=== PATIENT | female | born 1995 | race Caucasian/White ===

== ENCOUNTER 2022-12-21 03:13 | Emergency (ER) | payer OTHER ==
[2022-12-21 04:07] LABS: Absolute Lymphocytes (CBC) 1.8 K/uL (0.7-4.9); Hematocrit 35.9 % (36.0-45.0); Lymphocytes % 21.8 % (15.3-44.8); MCV 84.3 fL (80-100); MPV 7.8 fL (7.6-11.3); RBC Red Blood Cell Count 4.26 M/uL (3.86-4.86)
[2022-12-21 04:36] LABS: Potassium 3.3 mEq/L (3.5-5.1)
--- NOTE | 2022-12-21 05:34 | ER ---
Nurse's Notes [facility] Name: Michelle Reich Age: 26 yrs Sex: Female : 1995 Arrival Date: 12/21/2022 Time: 03:13 Bed 6 Private MD: Diagnosis: Threatened Presentation: 12/21 03:25 Chief complaint: Patient states: This is my first , i am 13 weeks along and kd3 around 1140 last night I started to bleed. I am not having any cramping and i called my production line nurse and she said to put a pad on and just monitor it but around 0230, i noticed some clots so i came to get checked out. Coronavirus screen: Vaccine status: Patient reports being unvaccinated. Ebola Screen: No symptoms or risks identified at this time. Initial Sepsis Screen: Does the patient meet any 2 criteria? No. Patient's initial sepsis screen is negative. Does the patient have a suspected source of infection? No. Patient's initial sepsis screen is negative. Risk Assessment: Do you want to hurt yourself or someone else? Patient reports no desire to harm self or others. Onset of symptoms was December 21, 2022. 03:25 Method Of Arrival: Ambulatory kd3 03:25 Acuity: CHANDRIKA 3 kd3 Triage Assessment: 03:27 General: Appears in no apparent distress. Behavior is anxious, crying. Pain: Complains kd3 of pain in stomach ache from nerves. : Reports vaginal bleeding that is bright red, with clots. Historical: - Allergies: 03:27 No Known Allergies; kd3 - Home Meds: 03:27 None [Active]; kd3 - Immunization history:: Adult Immunizations up to date. - Social history:: Smoking status: Patient denies any tobacco usage or history of. Screenin:40 [facility] ED Fall Risk Assessment (Adult) History of falling in the last 3 months, ll3 including since admission No falls in past 3 months (0 pts) Confusion or Disorientation No (0 pts) Intoxicated or Sedated No (0 pts) Impaired Gait No (0 pts) Mobility Assist Device Used No (0 pt) Altered Elimination No (0 pt) Score/Fall Risk Level 0 - 2 = Low Risk Oriented to surroundings, Maintained a safe environment, Educated pt \T\ family on fall prevention, incl call for assistance when getting out of bed. Abuse screen: Denies threats or abuse. Denies injuries from another. Nutritional screening: No deficits noted. Tuberculosis screening: No symptoms or risk factors identified. Assessment: 03:40 General: Appears comfortable, Behavior is calm, cooperative. Pain: Complains of pain in ll3 right lower quadrant Pain does not radiate. Quality of pain is described as crampy, Pain began 2300. : Urine is blood tinged, Reports vaginal bleeding that is bright red, with clots. Derm: Skin is pink, warm \T\ dry. Vital Signs: 03:25 BP 122 / 84; Pulse 78; Resp 16; Temp 98.4(O); Pulse Ox 100% on R/A; Weight 69.4 kg; kd3 Height 5 ft. 4 in. ; 04:06 BP 108 / 67; Pulse 69; Resp 18 S; Pulse Ox 100% on R/A; ha1 06:15 BP 102 / 69; Pulse 74; Resp 16; Pulse Ox 99% on R/A; ll3 03:25 Body Mass Index 26.26 (69.40 kg, 162.56 cm) kd3 ED Course: 03:15 Patient arrived in ED. [id number] 03:17 Wilder Teran MD is Attending Physician. bs3 03:27 Triage completed. kd3 03:27 Arm band placed on right wrist. kd3 03:39 Initial lab(s) drawn, by me, sent to lab. Inserted saline lock: 20 gauge in left ll3 antecubital area, using aseptic technique. Blood collected. 03:40 Patient has correct armband on for positive identification. Placed in gown. Bed in low ll3 position. Call light in reach. Side rails up X 1. Adult w/ patient. 04:30 US OB Limited In Process Unspecified. EDMS 06:15 No provider procedures requiring assistance completed. IV discontinued, intact, ll3 bleeding controlled, No redness/swelling at site. Pressure dressing applied. Administered Medications: 06:13 Drug: Rho D Immune Globulin IM 300 mcg Route: IM; Site: left gluteus; ll3 06:16 Follow up: Response: Medication administered at discharge. ll3 Medication: 06:16 VIS not applicable for this client. ll3 Outcome: 05:34 Discharge ordered by . bs3 06:15 Discharged to home ambulatory, with significant other. ll3 06:15 Condition: stable 06:15 Discharge instructions given to patient, significant other, Instructed on discharge instructions, follow up and referral plans. Demonstrated understanding of instructions, follow-up care. 06:16 Patient left the ED. ll3 Signatures: Dispatcher [employer] EDMS Sarah Oviedo [id number] Karina Armas RN RN ll3 Fariba Gandara RN RN kd3 Lulu Lobato RN RN ha1 Wilder Teran MD MD bs3
--- NOTE | 2022-12-21 05:34 | EDPHYS ---
Physician Documentation [facility] Name: Michelle Reich Age: 26 yrs Sex: Female : 1995 Arrival Date: 12/21/2022 Time: 03:13 Bed 6 Private MD: ED Physician Wilder Teran HPI: 12/21 03:25 This 26 yrs old Female presents to ER via Unassigned with complaints of EST bs3 13 WKS GESTATION, Vaginal Bleeding. 03:25 26yo lmp 13 weeks ago, report of confirmed iup pw vaginal bleeding, small clots, bs3 no sig pain, started suddenly, denies trauma/sex. denies other complaints, unknown rh status. Never happened before. Historical: - Allergies: 03:27 No Known Allergies; kd3 - Home Meds: 03:27 None [Active]; kd3 - Immunization history:: Adult Immunizations up to date. - Social history:: Smoking status: Patient denies any tobacco usage or history of. ROS: 03:25 Constitutional: Negative for fever, chills bs3 03:25 All other systems are negative. Exam: 03:25 Constitutional: This is a well developed, well nourished patient who is awake, alert, bs3 and in no acute distress. Head/Face: Normocephalic, atraumatic. Eyes: Pupils equal round and reactive to light, extra-ocular motions intact. Lids and lashes normal. Chest/axilla: Normal chest wall appearance and motion. Nontender with no deformity. No lesions are appreciated. Cardiovascular: Regular rate and rhythm with a normal S1 and S2. symmetric pulses in upper extremities Respiratory: Lungs have equal breath sounds bilaterally, clear to auscultation, no respiratory distress Abdomen/GI: Soft, non-tender, no rebound or guarding MS/ Extremity: Pulses equal, no cyanosis. Neurovascular intact. Full, normal range of motion. Neuro: Awake and alert, GCS 15, oriented to person, place, time, and situation. Cranial nerves II-XII grossly intact. Motor strength 5/5 in all extremities. Sensory grossly intact. Psych: Awake, alert, with orientation to person, place and time. Behavior, mood, and affect are within normal limits. Vital Signs: 03:25 BP 122 / 84; Pulse 78; Resp 16; Temp 98.4(O); Pulse Ox 100% on R/A; Weight 69.4 kg; kd3 Height 5 ft. 4 in. ; 04:06 BP 108 / 67; Pulse 69; Resp 18 S; Pulse Ox 100% on R/A; ha1 06:15 BP 102 / 69; Pulse 74; Resp 16; Pulse Ox 99% on R/A; ll3 03:25 Body Mass Index 26.26 (69.40 kg, 162.56 cm) kd3 MDM: 03:17 Patient medically screened. bs3 03:25 Data reviewed: vital signs, nurses notes. ED course: no iup in our system will get us bs3 to eval for iup vs ectopic, likely pt has threatened , possible subchorionic hemorrhage, advised to discuss with her automation technician. 04:26 ED course: Patient with subchorionic hematoma or hemorrhage advised outpatient bs3 follow-up with HOME PERFORMANCE CONSULTANT abstain from sex. 12/21 03:25 Order name: CBC with Diff; Complete Time: 04:17 bs3 12/21 03:25 Order name: BMP; Complete Time: 04:37 bs3 12/21 03:25 Order name: HCG-Quantitative; Complete Time: 04:37 bs3 12/21 03:25 Order name: Type And Screen bs3 12/21 03:25 Order name: Rh Type bs3 12/21 05:40 Order name: Rh Typing EDDC 12/21 05:40 Order name: Fetalscreen EDDC 12/21 05:40 Order name: Cord Rh type EDDC 12/21 05:40 Order name: Rhogam EDDC 12/21 05:40 Order name: ABO/RH no charge EDDC 12/21 03:25 Order name: US OB Limited bs3 Administered Medications: 06:13 Drug: Rho D Immune Globulin IM 300 mcg Route: IM; Site: left gluteus; ll3 06:16 Follow up: Response: Medication administered at discharge. ll3 Disposition Summary: 12/21/22 05:34 Discharge Ordered Location: Home bs3 Problem: new bs3 Symptoms: are unchanged bs3 Condition: Stable bs3 Diagnosis - Threatened bs3 Followup: bs3 - With: Private Physician - When: 2 - 3 days - Reason: Re-evaluation by your physician Discharge Instructions: - Discharge Summary Sheet bs3 - Vaginal Bleeding During , First Trimester bs3 - Subchorionic Hematoma bs3 - Threatened Miscarriage, [id number] bs3 Forms: - Medication Reconciliation Form bs3 - Thank You Letter bs3 - Antibiotic Education bs3 - Prescription Opioid Use bs3 Signatures: Dispatcher [employer] Karina Driscoll RN RN ll3 Fariba Gandara RN RN kd3 Wilder Teran MD MD bs3
[2022-12-21 06:31] VITALS: TEMP 98.4
[2022-12-21 06:44] VITALS: BP 102/69; O2SAT 99
--- NOTE | 2022-12-22 12:08 | RAD REPORT ---
EXAM DESCRIPTION: US , Limited CLINICAL HISTORY: The patient is 26 years old and is Female; ABD CRAMPING, TECHNIQUE: Real-time limited ultrasound of the maternal uterus with image documentation. COMPARISON: No relevant prior studies available. FINDINGS: Fetus: Single intrauterine gestational sac and fetus. Heart rate 161 bpm. [place]-rump aby gth 6.1 cm. BPD: Biparietal diameter 1.9 cm. HC: Head circumference 7.3 cm. AC: Abdominal circumference 5.8 cm. FL: Femur length 0.94 cm. Placenta: Addy shaped subchorionic hemorrhage, 2.7 x 1.7 cm. Uterus: Uterus 12.7 x 7.7 x 9.7 cm in size. Adnexa: Ovaries sought but not visualized. IMPRESSION: 1. Single live with EGA 12 weeks and four days. MARLIN July 01, 2023. 2. Subchorionic hemorrhage, 2.7 x 1.7 cm. Electronically signed by: Jenniffer Zaragoza MD 12/21/2022 6:29 AM CDT Due to temporary technical issues with the PACS/Fluency reporting system, reports are being signed by the in house radiologist without review as a courtesy to ensure prompt reporting. The interpreting r adiologist is fully responsible for the content of the report.
== END 2022-12-21 06:16 | disposition home or self-care (01) ==
LOC: ER 03:13
DX: O20.0 Threatened abortion (principal); Z3A.13 13 weeks gestation of pregnancy
CPT/HCPCS: 85025; 80048; 36415; 86900; 86850; 85461; 86901 ×2; 84702; 76815; J2790